=== PATIENT | male | born 1970 | race Caucasian/White ===

== ENCOUNTER 2019-06-14 21:06 | Emergency (ER) | payer OTHER ==
[~2019-06-14] VITALS: Ht 175.3 cm; Wt 120.2 kg
[2019-06-14 21:26] LABS: HEMATOCRIT 44.6 % (42.0-52.0); HEMOGLOBIN 15.8 gm/dL (14.0-18.0); MCH 30.3 pg (26.0-34.0); MCHC 35.3 g/dL (28.0-37.0); MCV 85.9 fL (80.0-100.0); MPV 7.6 fl. (7.2-11.1); NUCLEATED RBCS 0 /100WBC; PLATELET COUNT* 354 thou/uL (150-400); RBC 5.19 mil/uL (4.50-6.00); RDW-CV 14.2 % (10.5-14.5); WBC 9.9 thou/uL (4.0-11.0)
[2019-06-14 21:36] LABS: ANION GAP 8 mmol/L (7-16); BUN 12 mg/dL (7-18); CALCIUM 8.6 mg/dL (8.5-10.1); CHLORIDE 101 mmol/L (98-107); CO2 29 mmol/L (21-32); CREATININE 1.1 mg/dL (0.6-1.3); GLUCOSE 124 mg/dL (70-99); POTASSIUM 3.9 mmol/L (3.5-5.1); SODIUM 138 mmol/L (136-145)
[2019-06-14 21:43] LABS: APTT 28.9 Seconds (25.0-31.3); PROTIME 10.5 Seconds (9.20-11.50)
[2019-06-14 21:49] LABS: ALBUMIN 3.6 g/dL (3.4-5.0); ALKALINE PHOSPHATASE 109 U/L (46-116); CK-MB MASS 1.7 ng/mL (<0.5-3.6); LIPASE 131 U/L (73-393); MAGNESIUM 1.6 mg/dL (1.8-2.4); NT-PRO BRAIN NAT PEPTIDE 15 pg/mL (<300); SGOT 30 U/L (15-37); SGPT 47 U/L (30-65); TOTAL BILIRUBIN 0.4 mg/dL (<0.1-1.0); TROPONIN-I LEVEL <0.06 ng/mL (<0.06)
[2019-06-14 21:54] LABS: ABSOLUTE EOSINOPHILS 0.1 thou/uL (0.0-0.7); ABSOLUTE LYMPHOCYTES 2.5 thou/uL (0.8-5.3); ABSOLUTE MONOCYTES 0.8 thou/uL (0.0-1.2); ABSOLUTE NEUTROPHILS 6.5 thou/uL (1.6-8.1); PLATELET ESTIMATE ADEQUATE
[2019-06-14 22:30] VITALS: BP 130/82
--- NOTE | 2019-06-15 16:14 | EKG ---
[place] [address] ELECTROCARDIOGRAM REPORT Name: BRUNO BEDOLLA [id number] Admission: 06/14/19 Attend Phys: Discharge: 06/14/19 Date of : 74 Report #: [id number] THIS REPORT FOR: //name// [facility] ED Test Date: 2019-06-14 Test Time: 21:13:47 Pat Name: BRUNO BEDOLLA Department: Room: Gender: M [employer]: FERNANDO : 1970 Requested By: Steven Alvarado Order Number: [id number] MD: Claude Morgan Measurements Intervals [place] Rate: 104 P: 54 ND: 158 QRS: 60 QRSD: 84 T: QT: 327 QTc: 430 Interpretive Statements Sinus tachycardia Borderline T wave abnormalities Baseline wander in lead(s) V2,V4 No previous ECG available for comparison Electronically Signed On 06-15-2019 16:14:42 CDT by Claude Morgan [email or web address] <ELECTRONICALLY SIGNED> By: Claude Morgan MD, [facility] 06/15/19 1614 12 Claude Morgan MD, FACC /EPI
== END 2019-06-14 22:33 | disposition home or self-care (01) ==
LOC: M.ERS 21:06
PROVIDERS: Family Medicine
DX: R07.89 Other chest pain (principal)

== ENCOUNTER 2020-07-23 23:36 | Emergency (ER) | payer BC ==
[~2020-07-23] VITALS: Ht 175.3 cm; Wt 115.7 kg
[2020-07-24 01:02] LABS: CALCIUM 9.3 mg/dL (8.5-10.1); CREATININE 1.3 mg/dL (0.6-1.3); POTASSIUM 3.5 mmol/L (3.5-5.1)
[2020-07-24] MEDS ORDERED: NORCO 5-325 TA1 EAC2 PO (01:31)
[2020-07-24] MEDS ORDERED: IBUPROFEN 800800 M1 PO (01:31)
[2020-07-24] MEDS ORDERED: FLEXERIL PO (01:31)
[2020-07-24 01:47] VITALS: BP 128/83
== END 2020-07-24 01:47 | disposition home or self-care (01) ==
LOC: M.ERS 23:36
PROVIDERS: Emergency Medicine Emergency Medical Services
DX: S46.812A Strain of other muscles, fascia and tendons at shoulder and upper arm level, left arm, initial encounter (principal); Z90.49 Acquired absence of other specified parts of digestive tract; X50.9XXA Other and unspecified overexertion or strenuous movements or postures, initial encounter; Y93.89 Activity, other specified; Y92.89 Other specified places as the place of occurrence of the external cause; Y99.8 Other external cause status